=== PATIENT | female | born 2000 | race Caucasian/White ===

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

== ENCOUNTER 2020-06-22 11:55 | Emergency (ER) | payer OTHER ==
[2020-06-22 12:32] LABS: BASOPHILS # (AUTO) 0.1 10^3/uL (0.0-0.1); BASOPHILS % (AUTO) 0.5 %; EOSINOPHILS # (AUTO) 0.3 10^3/uL (0.0-0.7); EOSINOPHILS % (AUTO) 2.1 %; HGB - HEMOGLOBIN 12.3 g/dL (12.0-16.0); LYMPHOCYTES # (AUTO) 3.1 10^3/uL (1.5-3.5); MEAN CORPUSCULAR HEMOGLOBIN 25.9 pg (27.0-31.0); MEAN CORPUSCULAR HGB CONC 31.9 g/dL (32.0-36.0); MEAN CORPUSCULAR VOLUME 81.2 fL (81.0-99.0); MEAN PLATELET VOLUME 9.6 fL (7.9-10.8); MONOCYTES # (AUTO) 0.9 10^3/uL (0.0-1.0); MONOCYTES % (AUTO) 6.9 %; NEUTROPHILS # (AUTO) 8.4 10^3/uL (1.5-6.6); PLT - PLATELET COUNT 274 10^3/uL (130-450); RED BLOOD COUNT 4.74 10^6/uL (4.20-5.40); RED CELL DISTRIBUTION WIDTH 15.1 % (12.0-15.0); WHITE BLOOD COUNT 12.7 x10^3/uL (4.8-10.8)
[2020-06-22 12:45] LABS: INR 1.2 (0.8-1.2); PT - PROTHROMBIN TIME 13.3 secs (9.9-12.6)
[2020-06-22 12:48] LABS: ALBUMIN 3.9 g/dL (3.2-5.5); ALBUMIN/GLOBULIN RATIO 1.2 (1.0-2.2); BILIRUBIN,TOTAL 0.5 mg/dL (0.2-1.0); CALCIUM 9.1 mg/dL (8.5-10.3); CREATININE 0.7 mg/dL (0.4-1.0); TOTAL PROTEIN 7.2 g/dL (6.7-8.2)
[2020-06-22 12:52] LABS: PARTIAL THROMBOPLASTIN TIME 32.5 secs (24.9-33.3)
[2020-06-22 13:11] LABS: BILIRUBIN,URINE NEGATIVE (NEGATIVE); CLARITY,URINE SL. CLOUDY (CLEAR); GLUCOSE, URINE (UA) NEGATIVE (NEGATIVE); KETONES,URINE (UA) NEGATIVE (NEGATIVE); LEUKOCYTE ESTERASE, URINE NEGATIVE (NEGATIVE); NITRITE,URINE NEGATIVE (NEGATIVE); OCCULT BLOOD,URINE NEGATIVE (NEGATIVE); PROTEIN,URINE NEGATIVE (NEGATIVE); UROBILINOGEN,URINE 1 (NORMAL) E.U./dL (NORMAL)
[2020-06-22 13:12] LABS: HCG UR QUAL NEGATIVE
[2020-06-22 13:15] LABS: AMORPHOUS SEDIMENT,UR Moderate /LPF; BACTERIA,URINE Few /HPF (None Seen); RBC,URINE None Seen /HPF (0-5); SQUAMOUS EPITHELIAL CELL,UR MANY Squamous (<= Few)
--- NOTE | 2020-06-22 13:32 | ED Physician Documentation ---
PD HPI GI BLEED - Stated complaint Stated Complaint: FEMALE - Chief complaint Chief Complaint: Abd Pain - History obtained from History obtained from: Patient - History of Present Illness Timing - onset: How many hours ago (5-6), Today (this morning) Timing - duration: Hours (5-6) Timing - details: Abrupt onset, Still present Associated symptoms: BRBPR, Abdominal pain (lower abd below umbilicaus.). No: Vomiting, Constipation (states does have constipation for couple days at times, but had been regular and not hard stools. Had stool BM this morning and then bright red with wiping. Had another small BM an hour or so later and also with BRBPR, she states red and perhaps some purple. Denies rectal pain nor lump/itching.) Contributing factors: Other (no family members are similar sick. Consider stone, appendix, volvulus, ovarian cyst, free fluid. had 2 loose BMs.). No: Sick contact, Bad food, Recent antibiotics Worsened by: Moving Similar symptoms before: No diagnosis (intermittent lower abd cramps) Review of Systems Constitutional: denies: Fever, Chills Nose: denies: Rhinorrhea / runny nose, Congestion Throat: denies: Sore throat Respiratory: denies: Cough GI: reports: Nausea, Constipation (mild ongoing but not recent.). 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 HEENT: None Psych: Depression, Anxiety Musculoskeletal: None Derm: None - Past Surgical History Past Surgical History: No - Present Medications Home Medications: Ambulatory Orders Medication Instructions Recorded Confirmed Albuterol Sulfate [Proair Hfa 2 puffs INH Q4H PRN #1 inhaler 05/25/17 07/07/17 Inhaler] Ibuprofen [Motrin] 400 mg PO Q6H PRN #30 tablet 05/25/17 07/07/17 Guaifenesin/Pseudoephedrne HCl 1 each PO BID PRN #20 tab.er.12h 12/08/19 [Mucinex D ER 600-60 mg Tablet] predniSONE [Deltasone] 60 mg PO DAILY 5 Days #15 tablet 12/08/19 Docusate Sodium 100 mg PO DAILY #30 capsule 06/22/20 Hydrocodone/Acetaminophen [[place]view 1 each PO Q6H PRN #12 tablet 06/22/20 5-325 Tablet] Hydrocortisone Acetate [Anucort-Hc] 25 mg RC DAILY #5 supp.rect 06/22/20 Naproxen 375 mg PO TID #30 tablet 06/22/20 Ondansetron Odt [Zofran] 4 mg TL Q6H PRN #10 tablet 06/22/20 - Allergies Allergies/Adverse Reactions: Allergies Allergy/AdvReac Type Severity Reaction Status Date / Time iodine Allergy Hives Verified 06/22/20 12:03 Penicillins Allergy Rash Verified 06/22/20 12:03 - Social History Does the pt smoke?: No Smoking Status: Never smoker Does the pt drink ETOH?: No Does the pt have substance abuse?: No - Immunizations Immunizations are current?: Yes - POLST Patient has POLST: No PD ED PE NORMAL - Vitals Vital signs reviewed: Yes - General General: Alert and oriented X 3, Well developed/nourished, Other (appears in pain) - HEENT HEENT: Pharynx benign - Neck Neck: Supple, no meningeal sign, No adenopathy - Cardiac Cardiac: RRR, No murmur - Respiratory Respiratory: Clear bilaterally - Abdomen Abdomen: Normal bowel sounds, Soft, Non distended, No organomegaly, Other (tender suprapubic and RLQ areas with some local guarding. No percussion nor rebound tenderness. ) - Female Female : Deferred - Rectal Rectal: Pt declined (shared decision) - Derm Derm: Normal color, Warm and dry Results - Vitals Vitals: Vital Signs - 24 hr 06/22/20 06/22/20 12:04 15:26 Temperature 36.2 C L 37.2 C Heart Rate 100 87 Respiratory 16 18 Rate Blood Pressure 138/68 H 124/76 O2 Saturation 99 100 Oxygen O2 Source Room air - Labs Labs: Laboratory Tests 06/22/20 06/22/20 06/22/20 12:21 12:21 12:21 WBC 12.7 H RBC 4.74 Hgb 12.3 Hct 38.5 MCV 81.2 MCH 25.9 L MCHC 31.9 L RDW 15.1 H Plt Count 274 MPV 9.6 Neut # (Auto) 8.4 H Lymph # (Auto) 3.1 Williamson # (Auto) 0.9 Eos # (Auto) 0.3 Baso # (Auto) 0.1 Absolute Nucleated RBC 0.00 Nucleated RBC % 0.0 PT 13.3 H INR 1.2 APTT 32.5 Sodium 139 Potassium 3.8 Chloride 105 Carbon Dioxide 25 Anion Gap 9.0 BUN 11 Creatinine 0.7 Estimated GFR (MDRD) 108 Glucose 85 Calcium 9.1 Total Bilirubin 0.5 AST 22 ALT 27 Alkaline Phosphatase 112 Total Protein 7.2 Albumin 3.9 Globulin 3.3 Albumin/Globulin Ratio 1.2 Lipase 28 Urine Color Urine Clarity Urine pH Ur Specific Shannon Urine Protein Urine Glucose (UA) Urine Ketones Urine Occult Blood Urine Nitrite Urine Bilirubin Urine Urobilinogen Ur Leukocyte Esterase Urine RBC Urine WBC Ur Squamous Epith Cells Amorphous Sediment Urine Bacteria Ur Microscopic Review Urine Culture Comments Urine HCG, Qual 06/22/20 06/22/20 13:04 13:04 WBC RBC Hgb Hct MCV MCH MCHC RDW Plt Count MPV Neut # (Auto) Lymph # (Auto) Williamson # (Auto) Eos # (Auto) Baso # (Auto) Absolute Nucleated RBC Nucleated RBC % PT INR APTT Sodium Potassium Chloride Carbon Dioxide Anion Gap BUN Creatinine Estimated GFR (MDRD) Glucose Calcium Total Bilirubin AST ALT Alkaline Phosphatase Total Protein Albumin Globulin Albumin/Globulin Ratio Lipase Urine Color YELLOW Urine Clarity SL. CLOUDY Urine pH 7.0 Ur Specific Shannon 1.025 1.025 Urine Protein NEGATIVE Urine Glucose (UA) NEGATIVE Urine Ketones NEGATIVE Urine Occult Blood NEGATIVE Urine Nitrite NEGATIVE Urine Bilirubin NEGATIVE Urine Urobilinogen 1 (NORMAL) Ur Leukocyte Esterase NEGATIVE Urine RBC None Seen Urine WBC 0-3 Ur Squamous Epith Cells MANY Squamous H Amorphous Sediment Moderate Urine Bacteria Few Ur Microscopic Review INDICATED Urine Culture Comments NOT INDICATED Urine HCG, Qual NEGATIVE - Rads (name of study) abd CT Radiology: Prelim report reviewed (no acute process), See rad report PD MEDICAL DECISION MAKING - ED course Complexity details: reviewed results (normal labs and CT. Consider if colitis, Crohns, UC or similar. ), re-evaluated patient (much improved with meds and fluids. ), considered differential (can get CT to ensure this is not appy, ureteral stone, ovarian cyst with large bleeding, deeper abscess.), d/w patient, d/w family (mom) Departure - Departure Disposition: 01 Home, Self Care Clinical Impression: Lower abdominal pain, Rectal bleeding Condition: Stable Record reviewed to determine appropriate education?: Yes Instructions: ED Abdominal Pain Unkn Cause, ED Hematochezia Stable Follow-Up: Luisa De Jesus MD [Provider Admit Priv/Credential] - [facility] [Provider Group] Prescriptions: Hydrocortisone Acetate [Anucort-Hc] 25 mg RC DAILY #5 supp.rect Docusate Sodium 100 mg PO DAILY #30 capsule Naproxen 375 mg PO TID #30 tablet Hydrocodone/Acetaminophen [[place]view 5-325 Tablet] 1 each PO Q6H PRN #12 tablet PRN Reason: Pain Ondansetron Odt [Zofran] 4 mg TL Q6H PRN #10 tablet PRN Reason: Nausea / Vomiting Comments: Food as tolerated. Stay well-hydrated. Your blood tests urine test and CT scan did not show any acute process at this time. Considerations then would be food related irritations or inflammatory conditions such as colitis (Crohn's disease or similar). These would not necessarily show up on the CT scan. Further evaluation can be done with a colonoscopy. Follow-up with general surgery referral to discuss potential colonoscopy given you have had episodes of pains and some blood in the stool. The blood per rectum may easily be some internal hemorrhoids or something simple so he can do some hemorrhoid suppositories daily for the next several days as well. Use anti-inflammatories and stool softener as prescribed. Add Tylenol or pain medicine if needed for pains and cramps. Return if worsening. Forms: Activity restrictions Discharge Date/Time: 06/22/20 15:28
[2020-06-22] MEDS ORDERED: ONDANSETRON 4 MG/2 ML VIAL IVP STA (13:42)
[2020-06-22] MEDS ORDERED: MORPHINE 2 MG/ML CARPUJECT IVP STA (13:42)
[2020-06-22] MEDS ORDERED: KETOROLAC 30 MG/ML VIAL IVP STA (13:42)
[2020-06-22] MEDS ORDERED: SODIUM CHLORIDE 0.9% 1,000 ML IV STA (13:42)
--- NOTE | 2020-06-22 14:36 | CT Report ---
PROCEDURE: Abdomen/Pelvis WO INDICATIONS: lower abd pain since early AM. TECHNIQUE: Noncontrast 5 mm thick sections acquired from the diaphragms to the symphysis. 5 mm coronal and sagi ttal reformats were then performed. For radiation dose reduction, the following was used: automated exposure control, adjustment of mA and/or kV according to patient size. COMPARISON: None. FINDINGS: Image quality: Excellent. ABDOMEN: Lung bases: Lung bases are clear. Heart size is normal. Solid organs: Liver and spleen are normal in size. Gallbladder appears normal. Pancreas is normal in contours. No adrenal nodules. Kidneys are normal in size, without hydronephrosis or nephrolithia sis. Peritoneum and bowel: Unenhanced bowel loops demonstrate normal wall thickness and caliber. Normal a ppendix. No free fluid or air. Nodes and vessels: No retroperitoneal or mesenteric adenopathy by size criteria. Aorta and inferior vena cava are normal in caliber. Miscellaneous: No ventral hernias. PELVIS: Genitourinary: Bladder wall thickness is normal. The uterus appears normal. No adnexal mass is seen . Miscellaneous: No inguinal hernias or adenopathy. Bones: No suspicious bony lesions. No vertebral body compression fractures. IMPRESSION: No acute abnormality is identified in the abdomen or pelvis. Normal appendix. Reviewed by: Ruddy Joe MD on 06/22/2020 2:35 PM PDT Approved by: Ruddy Joe MD on 06/22/2020 2:35 PM PDT Station ID: [id number]
[2020-06-22 15:27] VITALS: BP 124/76
== END 2020-06-22 15:28 | disposition home or self-care (01) ==
LOC: ED 11:55
DX: R10.30 Lower abdominal pain, unspecified (principal); K62.5 Hemorrhage of anus and rectum; R11.0 Nausea
CPT/HCPCS: 36415; 74176; 80053; 81001; 81003; 81025; 83690; 85025; 85610; 85730; 87086; 96374; 96375; 99284

== ENCOUNTER 2021-03-18 17:16 | Outpatient (CLI) | payer OTHER | END 2021-03-18 23:59 | disposition home or self-care (01) | LOC: LAB.N 17:16 | PROVIDERS: ATTEND Physician Assistant Medical | DX: M54.9 Dorsalgia, unspecified (principal) | CPT/HCPCS: 87077; 87086; 87181 ==

== ENCOUNTER 2021-03-22 02:07 | Emergency (ER) | payer OTHER ==
--- NOTE | 2021-03-22 03:14 | ED Physician Documentation ---
PD HPI DYSPNEA - Stated complaint Stated Complaint: COUGH - Chief complaint Chief Complaint: Resp - History obtained from History obtained from: Patient - History of Present Illness Timing - onset: How many days ago (2-3) Timing - details: Gradual onset Improved by: Sitting up Worsened by: Laying flat, Coughing Associated symptoms: Fever (Tmax 100.2), Cough. No: Wheezing, Chest pain / discomfort, Bilateral edema, Unilateral edema Recently seen: Clinic - Additional information Additional information: [facility] ED visit on [facility] records. patient complains of few days of cough, dyspnea. Symptoms are worse than laying down. She also has a sore throat. Four days ago, she was seen in the outpatient setting, diagnosed with strep by throat swab, and prescribed Zithromax. She has had four days of a five day course of the Zithromax. She said she was also called by the clinic earlier today and was told that she has a UTI, and a prescription for an antibiotic was called into a pharmacy. 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 Review of Systems Constitutional: reports: Fever Cardiac: reports: Reviewed and negative Respiratory: reports: Dyspnea, Cough. 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 HEENT: None Psych: Depression, Anxiety Musculoskeletal: None Derm: None - Past Surgical History Past Surgical History: No - Present Medications Home Medications: Ambulatory Orders Medication Instructions Recorded Confirmed Albuterol Sulf [Ventolin Hfa 1 - 2 puffs INH Q4HR PRN #1 inhaler 03/22/21 Inhaler] Azithromycin [Zithromax] 250 mg PO DAILY 03/22/21 03/22/21 clindamycin HCL [Clindamycin HCl] 300 mg PO TID #30 cap 03/22/21 predniSONE [Deltasone] 40 mg PO DAILY 3 Days #6 tablet 03/22/21 - Allergies Allergies/Adverse Reactions: Allergies Allergy/AdvReac Type Severity Reaction Status Date / Time iodine Allergy Hives Verified 03/22/21 02:25 Penicillins Allergy Rash Verified 03/22/21 02:25 - Social History Does the pt smoke?: No Smoking Status: Never smoker Does the pt drink ETOH?: No Does the pt have substance abuse?: No - Immunizations Immunizations are current?: Yes - POLST Patient has POLST: No PD ED PE NORMAL - Vitals Vital signs reviewed: Yes - General General: Alert and oriented X 3, No acute distress, Well developed/nourished - HEENT HEENT: Pharynx benign - Neck Neck: Supple, no meningeal sign - Cardiac Cardiac: RRR, No murmur - Respiratory Respiratory: No respiratory distress, Other - Extremities Extremities: No edema PD ED PE EXPANDED - Respiratory Respiratory: Other (scattered rhonchi, predominantly bilateral lower lung delgado) Results - Vitals Vitals: Oxygen O2 Source Room air - Rads (name of study) cxr Radiology: Prelim report reviewed, See rad report PD MEDICAL DECISION MAKING - ED course Complexity details: reviewed results, re-evaluated patient, considered differential, d/w patient ED course: patient presents with signs and symptoms consistent with bronchitis, in the setting of a recent positive strep swab. Symptoms have been worsening despite four days of Zithromax. She reports significant improvement after being given Decadron PO and a door knob an emergency department tonight. Her chest x-ray does not show an acute infiltrate or other emergent findings. Given the recent positive strep test, it is reasonable to presume her respiratory symptoms are caused by strep that is not responding to the Zithromax, and thus I switched her to clindamycin. The options for antibiotics were narrowed down because of her stated penicillin allergy, causes extensive rash per patient. She is also prescribed an albuterol inhaler, and a short course of prednisone. Departure - Departure Disposition: 01 Home, Self Care Clinical Impression: Bronchitis, Pharyngitis Condition: Good Instructions: ED Upper Resp Infec Abx Tx, ED Strep Pharyngitis Conf Prescriptions: Albuterol Sulf [Ventolin Hfa Inhaler] 1 - 2 puffs INH Q4HR PRN #1 inhaler PRN Reason: Shortness Of Air/Wheezing clindamycin HCL [Clindamycin HCl] 300 mg PO TID #30 cap predniSONE [Deltasone] 40 mg PO DAILY 3 Days #6 tablet Forms: Activity restrictions Discharge Date/Time: 03/22/21 05:58
[2021-03-22] MEDS ORDERED: DEXAMETHASONE 10 MG/ML VIAL PO STA (03:37)
[2021-03-22] MEDS ORDERED: IPRATROPIUM/ALBUTEROL 3 ML NEB INH STA (03:37)
[2021-03-22] MEDS ORDERED: CHERRY SYRUP 10 ML UDC PO ONE (03:37)
[2021-03-22 06:54] VITALS: BP 137/86
--- NOTE | 2021-03-22 08:28 | XRAY Report ---
PROCEDURE: Chest 2 View X-Ray INDICATIONS: cough, dyspnea TECHNIQUE: 2 view(s) of the chest. COMPARISON: 04/01/2016. FINDINGS: Surgical changes and devices: None. Lungs and pleura: No pleural effusions or pneumothorax. Lungs are clear. Mediastinum: Mediastinal contours are normal. Heart size is normal. Bones and chest wall: No suspicious bony abnormalities. Soft tissues appear unremarkable. IMPRESSION: No evidence acute pulmonary process. A preliminary report with the above findings was provided at the time of the study by [facility]. Reviewed by: Teja Real MD on 03/22/2021 7:27 AM [facility] Approved by: Teja Real MD on 03/22/2021 7:27 AM [facility] Station ID: [id number]
== END 2021-03-22 05:58 | disposition home or self-care (01) ==
LOC: ED 02:07
DX: J40 Bronchitis, not specified as acute or chronic (principal); J02.9 Acute pharyngitis, unspecified
CPT/HCPCS: 71046; 94640; 99283; A9270

== ENCOUNTER 2021-08-28 08:00 | Outpatient (CLI) | payer OTHER | END 2021-08-28 23:59 | disposition home or self-care (01) | LOC: LAB.N 08:00 | PROVIDERS: ATTEND Physician Assistant | DX: R09.81 Nasal congestion (principal); Z20.822 Contact with and (suspected) exposure to COVID-19 ==

== ENCOUNTER 2021-10-07 01:56 | Emergency (ER) | payer MEDICAID, OTHER ==
--- NOTE | 2021-10-07 02:11 | ED Physician Documentation ---
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 HEENT: None Psych: Depression, Anxiety Musculoskeletal: None Derm: None - Past Surgical History Past Surgical History: No - Present Medications Home Medications: Ambulatory Orders Medication Instructions Recorded Confirmed Albuterol Sulf [Ventolin Hfa 1 - 2 puffs INH Q4HR PRN #1 inhaler 03/22/21 Inhaler] - Allergies Allergies/Adverse Reactions: Allergies Allergy/AdvReac Type Severity Reaction Status Date / Time iodine Allergy Hives Verified 10/07/21 02:10 Penicillins Allergy Rash Verified 10/07/21 02:10 - Social History Does the pt smoke?: No Smoking Status: Never smoker Does the pt drink ETOH?: No Does the pt have substance abuse?: No - Immunizations Immunizations are current?: Yes - POLST Patient has POLST: No Results - Vitals Vitals: Vital Signs - 24 hr 10/07/21 02:06 Temperature 36.6 C Heart Rate 109 H Respiratory 17 Rate Blood Pressure 141/96 H O2 Saturation 100 Oxygen O2 Source Room air
--- NOTE | 2021-10-07 02:13 | ED Physician Documentation ---
History of Present Illness - Stated complaint Stated Complaint: CHEST PRESSURE, SOA - Chief complaint Chief Complaint: Cardiac - History obtained from History obtained from: Patient - History of Present Illness Timing: How many minutes ago (30) Pain level max: 4 Pain level now: 0 Improved by: no ameliorating factors Worsened by: no exacerbating factors - Additonal information Additional information: c/o sudden onset right jaw pain and midline chest burning which progressed in intensity without exacerbating nor ameliorating factors. symptoms spontaneously resolved and she is asymptomatic at the time of this H+P. 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 Review of Systems Constitutional: reports: Reviewed and negative Cardiac: reports: Chest pain / pressure. 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 HEENT: None Psych: Depression, Anxiety Musculoskeletal: None Derm: None - Past Surgical History Past Surgical History: No - Present Medications Home Medications: Ambulatory Orders Medication Instructions Recorded Confirmed Albuterol Sulf [Ventolin Hfa 1 - 2 puffs INH Q4HR PRN #1 inhaler 03/22/21 Inhaler] - Allergies Allergies/Adverse Reactions: Allergies Allergy/AdvReac Type Severity Reaction Status Date / Time iodine Allergy Hives Verified 10/07/21 02:10 Penicillins Allergy Rash Verified 10/07/21 02:10 - Social History Does the pt smoke?: No Smoking Status: Never smoker Does the pt drink ETOH?: No Does the pt have substance abuse?: No - Immunizations Immunizations are current?: Yes - POLST Patient has POLST: No PD ED PE NORMAL - Vitals Vital signs reviewed: Yes - General General: Alert and oriented X 3, No acute distress, Well developed/nourished - Cardiac Cardiac: RRR, No murmur, No gallop, No rub - Respiratory Respiratory: No respiratory distress, Clear bilaterally - Abdomen Abdomen: Soft, Non tender - Extremities Extremities: No edema Results - Vitals Vitals: Oxygen O2 Source Room air - EKG (time done) No standard instances Rate: Rate (enter#) (97) Rhythm: NSR [place]: Normal Intervals: Normal NM QRS: Normal Ischemia: Normal ST segments Other comments: Other comments (RSr' V2 only; inverted T III only (this is on previous EKGs)) - Rads (name of study) chest xray Radiology: Prelim report reviewed, See rad report PD MEDICAL DECISION MAKING - ED course Complexity details: reviewed results, re-evaluated patient, considered differential, d/w patient ED course: presents for episode of chest pain which began as right jaw pain, 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 normal exam including cardiac and lung auscultation. unremarkable EKG and CXR. given the transient nature of symptoms, lack of cardiac risk factors, and patients age, further emergent testing is not indicated at this time. Departure - Departure Disposition: 01 Home, Self Care Clinical Impression: Atypical chest pain Condition: Good Instructions: ED Chest Pain Atypical Unkn Cause Comments: The cause of your chest discomfort is not clear at this time. The EKG and chest xray are unremarkable. Blood tests were not performed tonight as I do not feel they would help with diagnosis. Return to the emergency department at any time your symptoms worsen or if new concerning signs/symptoms develop (such as fever or shortness of breath); you might benefit from further testing should your symptoms change/worsen. Discharge Date/Time: 10/07/21 04:10
[2021-10-07 04:06] VITALS: BP 114/60
--- NOTE | 2021-10-07 08:08 | XRAY Report ---
PROCEDURE: Chest 2 View X-Ray INDICATIONS: chest pain TECHNIQUE: 2 view(s) of the chest. COMPARISON: 03/22/2021. FINDINGS: Surgical changes and devices: None. Lungs and pleura: No pleural effusions or pneumothorax. Lungs are clear. Mediastinum: Mediastinal contours are normal. Heart size is normal. Bones and chest wall: No suspicious bony abnormalities. Soft tissues appear unremarkable. IMPRESSION: No acute cardiopulmonary pathology. No discrepancies from preliminary reading. Reviewed by: Gómez Guevara MD on 10/07/2021 8:07 AM PST Approved by: Gómez Guevara MD on 10/07/2021 8:07 AM [facility] Station ID: [id number]
== END 2021-10-07 04:10 | disposition home or self-care (01) ==
LOC: ED 01:56
DX: R07.89 Other chest pain (principal)
CPT/HCPCS: 93005; 99283; 99284

== ENCOUNTER 2021-12-09 15:15 | Emergency (ER) | payer OTHER, MEDICAID ==
[2021-12-09 15:25] VITALS: BP 146/82
--- NOTE | 2021-12-09 15:31 | ED Physician Documentation ---
PD HPI SKIN - Stated complaint Stated Complaint: R FINGER INJ - Chief complaint Chief Complaint: Ext Problem - History obtained from History obtained from: Patient - History of Present Illness Timing - onset: How many days ago (4) Timing - duration: Days (4) Timing - details: Gradual onset (onset of swelling and redness around corner of nail. SHE states it did drain small amount of pus and a layer of skin peeled off like blister. 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 HEENT: None Psych: Depression, Anxiety Musculoskeletal: None Derm: None - Past Surgical History Past Surgical History: No - Present Medications Home Medications: Ambulatory Orders Medication Instructions Recorded Confirmed Albuterol Sulf [Ventolin Hfa 1 - 2 puffs INH Q4HR PRN #1 inhaler 03/22/21 Inhaler] Mupirocin 2% Oint [Bactroban 2% 1 applic TOP TID #15 gm 12/09/21 Oint] Sulfamethox/Trimeth 800/160 1 each PO BID #10 tablet 12/09/21 [Bactrim Ds 800/160] - Allergies Allergies/Adverse Reactions: Allergies Allergy/AdvReac Type Severity Reaction Status Date / Time iodine Allergy Hives Verified 12/09/21 15:25 Penicillins Allergy Rash Verified 12/09/21 15:25 - Social History Does the pt smoke?: No Smoking Status: Never smoker Does the pt drink ETOH?: No Does the pt have substance abuse?: No - Immunizations Immunizations are current?: Yes - POLST Patient has POLST: No PD ED PE NORMAL - Vitals Vital signs reviewed: Yes - General General: Alert and oriented X 3, No acute distress, Well developed/nourished - Derm Derm: Normal color, Warm and dry - Extremities Extremities: Other (right middle finger radial side nailbed corner with redness and tenderness, with mild swelling. No fluctuance nor pointing. Redness with some tender extends dorsal finger to DIP. No pain with flexion/extension at DIP. ) - Neuro Neuro: Alert and oriented X 3, No motor deficit, No sensory deficit, Normal speech Results - Vitals Vitals: Vital Signs - 24 hr 12/09/21 15:24 Temperature 37.1 C Heart Rate 100 Respiratory 16 Rate Blood Pressure 146/82 H O2 Saturation 100 Oxygen O2 Source Room air PD MEDICAL DECISION MAKING - ED course Complexity details: considered differential (seems like paronychia that is spreading as cellulitis in finger. ), d/w patient Departure - Departure Disposition: 01 Home, Self Care Clinical Impression: Paronychia Cellulitis, finger Qualifiers: Laterality: right Qualified Code(s): L03.011 - Cellulitis of right finger Condition: Stable Record reviewed to determine appropriate education?: Yes Instructions: ED Infec Skin Cellulitis Prescriptions: Sulfamethox/Trimeth 800/160 [Bactrim Ds 800/160] 1 each PO BID #10 tablet Mupirocin 2% Oint [Bactroban 2% Oint] 1 applic TOP TID #15 gm Comments: I do not see an area that looks like it needs draining per se. We can treat this with soaking with warm water soaks 2-3 times daily and applying antibiotic ointment locally at the fingernail bed. The infection does appear to be extending up in the soft tissue of the finger so we can treat it with antibiotics orally as well. Bactrim DS twice daily for 5 days. I would anticipate improvement in this over the next few days and resolution by 3 to 5 days. Recheck if not better in that timeframe or worsening. I transmitted your prescription to [facility]. Tylenol or ibuprofen if needed for pains. Discharge Date/Time: 12/09/21 17:03
[2021-12-09] MEDS ORDERED: SULFAMETH/TRIMETH DS 800/160 MG TABLET PO STA (15:53)
[2021-12-09] MEDS ORDERED: ACETAMINOPHEN 325 MG TABLET PO STA (15:54)
== END 2021-12-09 17:03 | disposition home or self-care (01) ==
LOC: ED 15:15
DX: L03.011 Cellulitis of right finger (principal)
CPT/HCPCS: 99282; A9270

== ENCOUNTER 2021-12-10 22:44 | Emergency (ER) | payer MEDICAID, OTHER ==
--- NOTE | 2021-12-11 01:04 | ED Physician Documentation ---
History of Present Illness - Stated complaint Stated Complaint: FINGER IN PAIN - Chief complaint Chief Complaint: Heent - History obtained from History obtained from: Patient - History of Present Illness Timing: How many days ago (4-5) Pain level now: 8 Improved by: no ameliorating factors Worsened by: palpation - Additonal information Additional information: T+R yesterday for right middle finger paronychia. Treated with abx only, has had three doses (including the first dose which was given in ED). She presents due to worsening pain and swelling. Denies h/o similar symptoms. Denies injury. 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 : None HEENT: None Psych: Depression, Anxiety Musculoskeletal: None Derm: None - Past Surgical History Past Surgical History: No - Present Medications Home Medications: Ambulatory Orders Medication Instructions Recorded Confirmed Albuterol Sulf [Ventolin Hfa 1 - 2 puffs INH Q4HR PRN #1 inhaler 03/22/21 Inhaler] Mupirocin 2% Oint [Bactroban 2% 1 applic TOP TID #15 gm 12/09/21 Oint] Sulfamethox/Trimeth 800/160 1 each PO BID #10 tablet 12/09/21 [Bactrim Ds 800/160] - Allergies Allergies/Adverse Reactions: Allergies Allergy/AdvReac Type Severity Reaction Status Date / Time iodine Allergy Hives Verified 12/10/21 22:55 Penicillins Allergy Rash Verified 12/10/21 22:55 - Social History Does the pt smoke?: No Smoking Status: Never smoker Does the pt drink ETOH?: No Does the pt have substance abuse?: No - Immunizations Immunizations are current?: Yes - POLST Patient has POLST: No PD ED PE NORMAL - Vitals Vital signs reviewed: Yes - General General: Alert and oriented X 3, No acute distress - Neuro Neuro: No sensory deficit (diminished LTS tip of right middle finger) PD ED PE EXPANDED - Extremities Extremities: Other (maximum tenderness, swelling with fluctuance is adjacent to right middle finger proximal/lateral nail fold) BEV UE/Hands Visual: 1 - rash (confluent erythema), swelling, tenderness Results - Vitals Vitals: Oxygen O2 Source Room air - Labs Labs: Microbiology 12/11/21 03:28 Wound Culture - Preliminary Finger - Left Middle Procedures - Abscess I&D (location) Finger right Dorsal Preparation: Chlorhexadine, Lidocaine 1%, Other (1:1 lidocaine and buipvicaine) Incision: Incised with scalpel, Purulent drainage, Culture obtained Other: Pt tolerated well PD MEDICAL DECISION MAKING - ED course Complexity details: considered differential, d/w patient ED course: patient presents with worsening right middle finger paronychia. she has only had 3 doses of bactrim thus far and so she is continued on this antibiotic after I+D performed on this visit tonight. Return precautions discussed. She is given ibuprofen in ED prior to d/c as well as vicodin take-home to be used if ibuprofen is ineffective Departure - Departure Disposition: 01 Home, Self Care Clinical Impression: Paronychia Condition: Good Instructions: ED Fingernail Infec Forms: Activity restrictions Discharge Date/Time: 12/11/21 03:57
[2021-12-11] MEDS ORDERED: lidocaine 1% 20 ML MDV SUBQ STA (01:30)
[2021-12-11] MEDS ORDERED: BUPIVACAINE 0.5% PF 10 ML VIAL SUBQ STA (01:31)
[2021-12-11] MEDS ORDERED: lidocaine 1% 20 ML MDV ONE (01:34)
[2021-12-11] MEDS ORDERED: BUPIVACAINE 0.5% PF 10 ML VIAL ONE (01:35)
[2021-12-11 03:08] VITALS: BP 130/77
[2021-12-11] MEDS ORDERED: IBUPROFEN 600 MG TABLET PO STA (03:41)
[2021-12-11] MEDS ORDERED: HYDROcod/ACET 5/325 Prepack 4 PO STA (03:41)
== END 2021-12-11 03:57 | disposition home or self-care (01) ==
LOC: ED 22:44
DX: L03.011 Cellulitis of right finger (principal)
CPT/HCPCS: 10060; 87070; 87205; 99282; 99283; A9270

== ENCOUNTER 2022-12-02 08:00 | Outpatient (CLI) | payer MEDICAID, OTHER ==
[2022-12-02 17:47] LABS: BASOPHILS # (AUTO) 0.1 10^3/uL (0.0-0.1); BASOPHILS % (AUTO) 0.5 %; EOSINOPHILS # (AUTO) 0.2 10^3/uL (0.0-0.7); EOSINOPHILS % (AUTO) 1.9 %; HCT - HEMATOCRIT 42.4 % (37.0-47.0); HGB - HEMOGLOBIN 13.1 g/dL (12.0-16.0); LYMPHOCYTES # (AUTO) 3.1 10^3/uL (1.5-3.5); LYMPHOCYTES % (AUTO) 26.3 %; MEAN CORPUSCULAR HEMOGLOBIN 24.5 pg (27.0-31.0); MEAN CORPUSCULAR HGB CONC 30.9 g/dL (32.0-36.0); MEAN CORPUSCULAR VOLUME 79.4 fL (81.0-99.0); MEAN PLATELET VOLUME 10.5 fL (7.9-10.8); MONOCYTES # (AUTO) 0.6 10^3/uL (0.0-1.0); MONOCYTES % (AUTO) 5.1 %; NEUTROPHILS # (AUTO) 7.8 10^3/uL (1.5-6.6); NEUTROPHILS % (AUTO) 65.8 %; PLT - PLATELET COUNT 298 10^3/uL (130-450); RED BLOOD COUNT 5.34 10^6/uL (4.20-5.40); RED CELL DISTRIBUTION WIDTH 15.2 % (12.0-15.0); WHITE BLOOD COUNT 11.9 x10^3/uL (4.8-10.8)
[2022-12-02 18:26] LABS: ALBUMIN 3.9 g/dL (3.2-5.5); ALBUMIN/GLOBULIN RATIO 1.1 (1.0-2.2); BILIRUBIN,TOTAL 0.3 mg/dL (0.2-1.0); CALCIUM 9.1 mg/dL (8.5-10.3); CREATININE 0.7 mg/dL (0.4-1.0); POTASSIUM 3.9 mmol/L (3.5-5.0); TOTAL PROTEIN 7.6 g/dL (6.7-8.2)
[2022-12-02 18:42] LABS: THYROID STIMULATING HORMONE 3.31 uIU/mL (0.34-5.60)
[2022-12-02 18:44] LABS: FREE T3 3.73 pg/mL (2.5-3.9); FREE T4 (FREE THYROXINE) 0.94 ng/dL (0.58-1.64)
== END 2022-12-02 23:59 | disposition home or self-care (01) ==
LOC: LAB.N 08:00
PROVIDERS: ATTEND Nurse Practitioner
DX: R13.10 Dysphagia, unspecified (principal)
CPT/HCPCS: 36415; 80053; 84439; 84443; 84481; 85025

== ENCOUNTER 2022-12-02 15:47 | Outpatient (CLI) | payer OTHER ==
--- NOTE | 2022-12-02 21:26 | XRAY Report ---
PROCEDURE: Neck Soft Tissue INDICATIONS: DYSPHAGIA TECHNIQUE: 2 views of the neck were acquired. COMPARISON: None FINDINGS: Prevertebral soft tissues are normal in thickness. The epiglottis and aryepiglottic folds appear nor mal. No soft tissue gas. IMPRESSION: No definite abnormality of the neck soft tissues evident by radiography. If symptoms persist, follow- up radiographs and/or CT or MRI may be helpful for further evaluation. Reviewed by: Ruddy Alfred MD on 12/02/2022 9:24 PM [facility] Approved by: Ruddy Alfred MD on 12/02/2022 9:24 PM [facility] Station ID: [id number]
== END 2022-12-02 15:48 | disposition home or self-care (01) ==
LOC: DI 15:47
PROVIDERS: ATTEND Nurse Practitioner
DX: R13.10 Dysphagia, unspecified (principal)
CPT/HCPCS: 36415; 80053; 84439; 84443; 84481; 85025

== ENCOUNTER 2023-03-24 10:52 | Emergency (ER) | payer OTHER ==
[2023-03-24] MEDS ORDERED: KETOROLAC 30 MG/ML VIAL IM STA (11:43)
--- NOTE | 2023-03-24 11:45 | ED Physician Documentation ---
History of Present Illness - Stated complaint Stated Complaint: FALL - Chief complaint Chief Complaint: Trauma Ext - Additonal information Additional information: 22-year-old female presents emergency department for evaluation of left knee and lower leg pain. Reports that she was descending the stairs when she slipped on the last for 5 steps falling forward. She sustained a large abrasion on the lower anterior leg. She reports that she was stunned after the fall able to get up on her own and actually proceeded to run back up the stairs. Did not strike her head or lose consciousness. She is not anticoagulated. She reports most of the pain in the lateral knee and on the lower leg at the site of the abrasion. 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 : None HEENT: None Psych: Depression, Anxiety Musculoskeletal: None Derm: None - Past Surgical History Past Surgical History: No - Present Medications Home Medications: Ambulatory Orders Medication Instructions Recorded Confirmed Albuterol Sulf [Ventolin Hfa 1 - 2 puffs INH Q4HR PRN #1 inhaler 03/22/21 Inhaler] Mupirocin 2% Oint [Bactroban 2% 1 applic TOP TID #15 gm 12/09/21 Oint] Sulfamethox/Trimeth 800/160 1 each PO BID #10 tablet 12/09/21 [Bactrim Ds 800/160] - Allergies Allergies/Adverse Reactions: Allergies Allergy/AdvReac Type Severity Reaction Status Date / Time iodine Allergy Hives Verified 03/24/23 11:00 Penicillins Allergy Rash Verified 03/24/23 11:00 - Social History Does the pt smoke?: No Smoking Status: Never smoker Does the pt drink ETOH?: No Does the pt have substance abuse?: No - Immunizations Immunizations are current?: Yes - POLST Patient has POLST: No PD ED PE NORMAL - General General: Alert and oriented X 3, No acute distress, Well developed/nourished - HEENT HEENT: Atraumatic, Moist mucous membranes - Neck Neck: Supple, no meningeal sign, No adenopathy - Cardiac Cardiac: RRR, No murmur - Respiratory Respiratory: No respiratory distress, Clear bilaterally - Abdomen Abdomen: Normal bowel sounds, Soft - Back Back: No spinal TTP (No tenderness elicited with palpation of the cervical, thoracic or lumbar spinous processes. No abrasions step-off crepitus or ecchymosis noted. Full forward flexion of the lower lumbar spine. Mildly antalgic gait.) - Derm Derm: Normal color, Warm and dry, Other (Superficial abrasion on the lower anterior left leg. No deformity. 2+ DP pulse. Full range of motion of the ankle in all planes.) - Extremities Extremities: No deformity. 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 Eye Opening: Spontaneous Motor: Obeys Commands Verbal: Oriented GCS Score: 15 Results - Vitals Vitals: Vital Signs - 24 hr 03/24/23 10:57 Temperature 36.7 C Heart Rate 110 H Respiratory 20 Rate Blood Pressure 128/83 H O2 Saturation 99 Oxygen O2 Source Room air - Rads (name of study) left knee Relevant Findings:: EMP independent interpretation of test (No acute fracture or osseous lesion or dislocation) left tib fib Relevant Findings:: EMP independent interpretation of test (No acute fracture or osseous lesion or dislocation) PD Medical Decision Making - ED course Complexity details: reviewed results, d/w patient ED course: Well-appearing 22-year-old female presents emergency department for evaluation of acute left lower leg pain sustained when she fell down 4-5 steps this morning. Did not strike her head or lose consciousness. She has been ambulatory. Most of the pain is in the lateral side of the knee as well as the lower leg at the site of an abrasion. On exam there was no laxity in the knee she has full range of motion of the hip left knee and ankle. My interpretation of the knee and tib-fib x-rays is that there is no acute fracture or osseous lesion. I suspect a sprain and contusion in the knee. Patient was administered 30 mg of Toradol IM here in the ER with good resolution of pain. She is placed in a knee immobilizer and given crutches. Recommended routine RICE precautions over the next week. Discussed the usual emergent return precautions for failure symptoms to resolve. Departure - Departure Disposition: 01 Home, Self Care Clinical Impression: Left knee sprain Qualifiers: Encounter type: initial encounter Involved ligament of knee: unspecified ligament Qualified Code(s): S83.92XA - Sprain of unspecified site of left knee, initial encounter Contusion of left knee Qualifiers: Encounter type: initial encounter Qualified Code(s): S80.02XA - Contusion of left knee, initial encounter Abrasion, lower leg, anterior Qualifiers: Encounter type: initial encounter Laterality: left Qualified Code(s): S80.812A - Abrasion, left lower leg, initial encounter Condition: Stable Record reviewed to determine appropriate education?: Yes Comments: As discussed at the bedside my interpretation of your x-rays is that there is no broken bone in either the knee or the lower leg. You do have a superficial abrasion which I anticipate will be uncomfortable and painful over the next several days. You also likely have a sprain in the knee. In order to help your symptoms we are providing you with a knee immobilizer and some crutches. Over the next several days I recommend that you stay off the knee and use crutches for ambulation. You can ice the knee for 10 minutes 2-3 times a day. Can also take 500 mg of Tylenol or alternate with 600 mg of ibuprofen taken with food 2-3 times a day. In general most contusions and sprains will begin to get better over about a week. If not improving as anticipated follow close with your primary care doctor. At that point they may elect to consider referral to physical therapy, orthopedics or advanced imaging such as MRI. Return to the ER if you develop any fevers, have severe knee swelling or red streaking in your leg
[2023-03-24 12:34] VITALS: BP 125/82
--- NOTE | 2023-03-24 12:59 | XRAY Report ---
PROCEDURE: Knee 3 View LT INDICATIONS: fall TECHNIQUE: 3 views of the left knee(s) were acquired. COMPARISON: None. FINDINGS: Bones: No fractures or dislocations. No suspicious bony lesions. Soft tissues: No knee joint effusion. No suspicious soft tissue calcifications or masses. IMPRESSION: No visualized acute fracture or dislocation. However, occult injury cannot be excluded. Recommend gordy rt interval imaging follow-up in 7-10 days as clinically indicated for additional evaluation. Reviewed by: Meghann Jarrell MD on 03/24/2023 12:58 PM PDT Approved by: Meghann Jarrell MD on 03/24/2023 12:58 PM PDT Station ID: [id number]
--- NOTE | 2023-03-24 13:00 | XRAY Report ---
PROCEDURE: Tib/Fib LT INDICATIONS: lower leg pain after fall TECHNIQUE: 2 views of the tibia and fibula were acquired. COMPARISON: X-ray knee 03/24/2023 FINDINGS: Bones: No fractures or dislocations. No suspicious bony lesions. Soft tissues: No suspicious soft tissue calcifications or masses. IMPRESSION: No visualized acute fracture or dislocation. However, occult injury cannot be excluded. Recommend gordy rt interval imaging follow-up in 7-10 days as clinically indicated for additional evaluation. Reviewed by: Meghann Jarrell MD on 03/24/2023 12:58 PM PDT Approved by: Meghann Jarrell MD on 03/24/2023 12:58 PM PDT Station ID: [id number]
== END 2023-03-24 12:37 | disposition home or self-care (01) ==
LOC: ED 10:52
DX: S83.92XA Sprain of unspecified site of left knee, initial encounter (principal); S80.812A Abrasion, left lower leg, initial encounter; W10.9XXA Fall (on) (from) unspecified stairs and steps, initial encounter
CPT/HCPCS: 96372; 99283

== ENCOUNTER 2023-10-13 16:22 | Outpatient (CLI) | payer OTHER | END 2023-10-13 16:23 | disposition home or self-care (01) | LOC: RT 16:22 | PROVIDERS: ATTEND Physician Assistant | DX: J45.909 Unspecified asthma, uncomplicated (principal) | CPT/HCPCS: 94060 ==